=== PATIENT | female | born 1995 | race African-American/Black ===

== ENCOUNTER 2016-08-03 17:42 | Emergency (ER) | payer SELFPAY ==
[2016-08-03] MEDS ORDERED: Ibuprofen 800 MG TAB ONE (17:56)
== END 2016-08-03 18:21 | disposition home or self-care (01) ==
LOC: MADERS 17:42
DX: J02.9 Acute pharyngitis, unspecified (principal); F17.210 Nicotine dependence, cigarettes, uncomplicated
CPT/HCPCS: 87081; 87430; 99283

== ENCOUNTER 2016-12-16 11:47 | Emergency (ER) | payer MEDICAID, SELFPAY ==
[2016-12-16] MEDS ORDERED: HYDROcodone/Acetaminophen 10/325 mg Tablet ONE (12:03)
[2016-12-16] MEDS ORDERED: Naproxen 500 MG TAB ONE (12:04)
[2016-12-16] MEDS ORDERED: Azithromycin 250 MG TAB ONE (12:04)
== END 2016-12-16 12:15 | disposition home or self-care (01) ==
LOC: MADERS 11:47
DX: K04.7 Periapical abscess without sinus (principal); K03.81 Cracked tooth; K02.9 Dental caries, unspecified; F17.210 Nicotine dependence, cigarettes, uncomplicated
CPT/HCPCS: 99282

== ENCOUNTER 2016-12-24 21:38 | Emergency (ER) | payer MEDICAID, SELFPAY ==
[2016-12-24] MEDS ORDERED: Naproxen 500 MG TAB ONE (23:05)
[2016-12-24] MEDS ORDERED: AMOXicillin 250 MG CAP ONE (23:05)
[2016-12-24] MEDS ORDERED: HYDROcodone/Acetaminophen 10/325 mg Tablet ONE (23:05)
== END 2016-12-24 23:32 | disposition home or self-care (01) ==
LOC: MADERS 21:38
DX: K04.7 Periapical abscess without sinus (principal); F17.210 Nicotine dependence, cigarettes, uncomplicated
CPT/HCPCS: 99282

== ENCOUNTER 2018-02-09 14:58 | Emergency (ER) | payer MEDICAID, SELFPAY | END 2018-02-09 15:56 | disposition home or self-care (01) | LOC: MADERS 14:58 | DX: R51 Headache (principal); F17.210 Nicotine dependence, cigarettes, uncomplicated | CPT/HCPCS: 99281 ==

== ENCOUNTER 2019-10-09 08:57 | Emergency (ER) | payer SELFPAY ==
[2019-10-09] MEDS ORDERED: predniSONE 20 MG TAB ONE (09:45)
[2019-10-09] MEDS ORDERED: Acetaminophen 325 MG TAB ONE (09:45)
[2019-10-09] MEDS ORDERED: Clindamycin 150 MG CAP ONE (09:57)
== END 2019-10-09 10:48 | disposition home or self-care (01) ==
LOC: MADERS 08:57
DX: J02.0 Streptococcal pharyngitis (principal); F17.210 Nicotine dependence, cigarettes, uncomplicated
CPT/HCPCS: 87081; 87430; 99283; J7512

== ENCOUNTER 2020-08-08 07:27 | Emergency (ER) | payer SELFPAY ==
[2020-08-08 09:21] LABS: Bilirubin Negative (Negative); Blood, Urine Trace (Negative); Clarity Clear (Clear); Glucose, Urine (Dipstick) Negative (Negative); Ketone, Urine 80 mg/dL (Negative); Leukocyte Negative (Negative); Nitrite Negative (Negative); Protein, Urine (Dipstick) Negative (Neg-Trace); Urobilinogen 0.2 mg/dL (Less than 2); pH, Urine 6.5 (5.0-9.0)
[2020-08-08 09:22] LABS: Pregnancy Test - Urine (BHCG) Negative (Negative); Pregu Control Background? CLEAR/WHITE (CLR/WHITE); Pregu Control Bar Appear? YES (CONTROL BAR); Specific Gravity 1.023 (1.002-1.036)
[2020-08-08 09:23] LABS: Specific Gravity, Urine 1.023 (1.002-1.036)
[2020-08-08 09:31] LABS: Bacteria/HPF Rare-Few HPF (None Seen); Mucous/LPF Rare LPF (<2+); RBC/HPF 0-3 HPF (0-3); WBC/HPF 0-3 HPF (0-3)
[2020-08-10 20:38] LABS: Chlamydia by PCR Not Detected (NotDetected); GC by PCR Not Detected (NotDetected)
== END 2020-08-08 09:42 | disposition home or self-care (01) ==
LOC: MADERS 07:27
DX: N76.0 Acute vaginitis (principal); F17.210 Nicotine dependence, cigarettes, uncomplicated
CPT/HCPCS: 81003; 81015; 81025; 87480; 87491; 87510; 87591; 87660; 99283

== ENCOUNTER 2020-10-15 16:35 | Emergency (ER) | payer SELFPAY ==
[2020-10-15] MEDS ORDERED: Penicillin V Potassium 250 MG TAB ONE (17:28)
== END 2020-10-15 17:41 | disposition home or self-care (01) ==
LOC: MADERS 16:35
DX: K04.7 Periapical abscess without sinus (principal); F17.210 Nicotine dependence, cigarettes, uncomplicated; E66.9 Obesity, unspecified
CPT/HCPCS: 99283

== ENCOUNTER 2021-01-02 10:37 | Emergency (ER) | payer SELFPAY ==
[2021-01-02 11:11] LABS: Bilirubin Negative (Negative); Blood, Urine Small (Negative); Clarity Clear (Clear); Glucose, Urine (Dipstick) Negative (Negative); Ketone, Urine Negative (Negative); Leukocyte Negative (Negative); Nitrite Negative (Negative); Protein, Urine (Dipstick) Negative (Neg-Trace); Urobilinogen 0.2 mg/dL (Less than 2)
[2021-01-02 11:12] LABS: Pregnancy Test - Urine (BHCG) Negative (Negative); Pregu Control Background? CLEAR/WHITE (CLR/WHITE); Pregu Control Bar Appear? YES (CONTROL BAR); Specific Gravity 1.028 (1.002-1.036); Specific Gravity, Urine 1.028 (1.002-1.036)
[2021-01-02 11:17] LABS: Bacteria/HPF Rare-Few HPF (None Seen); Mucous/LPF 1+ LPF (<2+); RBC/HPF 0-3 HPF (0-3); WBC/HPF 0-3 HPF (0-3)
[2021-01-02] MEDS ORDERED: Clindamycin 150 MG CAP ONE (11:23)
== END 2021-01-02 11:35 | disposition home or self-care (01) ==
LOC: MADERS 10:37
DX: K04.7 Periapical abscess without sinus (principal); R03.0 Elevated blood-pressure reading, without diagnosis of hypertension; F17.210 Nicotine dependence, cigarettes, uncomplicated; E66.9 Obesity, unspecified
CPT/HCPCS: 81003; 81015; 81025; 99283

== ENCOUNTER 2021-01-17 09:48 | Emergency (ER) | payer SELFPAY ==
[2021-01-17 11:58] LABS: BHCG - Serum Negative (NEGATIVE); Pregs Control Background? CLEAR/WHITE (CLR/WHITE); Pregs Control Bar Appear? YES (CONTROL BAR)
== END 2021-01-17 12:36 | disposition home or self-care (01) ==
LOC: MADERS 09:48
DX: N91.2 Amenorrhea, unspecified (principal); F17.210 Nicotine dependence, cigarettes, uncomplicated; E66.9 Obesity, unspecified; Z68.45 Body mass index [BMI] 70 or greater, adult
CPT/HCPCS: 36415; 84703; 99283

== ENCOUNTER 2021-11-15 18:42 | Emergency (ER) | payer SELFPAY ==
[2021-11-15] MEDS ORDERED: Ondansetron ODT 4 MG TAB ONE (20:21)
[2021-11-15 20:48] LABS: Bilirubin Negative (Negative); Blood, Urine Trace (Negative); Clarity Slightly Cloudy (Clear); Glucose, Urine (Dipstick) Negative (Negative); Ketone, Urine Negative (Negative); Leukocyte Negative (Negative); Nitrite Positive (Negative); Pregnancy Test - Urine (BHCG) Negative (Negative); Pregu Control Background? CLEAR/WHITE (CLR/WHITE); Pregu Control Bar Appear? YES (CONTROL BAR); Protein, Urine (Dipstick) Trace mg/dL (Neg-Trace); Specific Gravity 1.023 (1.002-1.036); Urobilinogen 0.2 mg/dL (Less than 2); pH, Urine 5.5 (5.0-9.0)
[2021-11-15 20:49] LABS: Specific Gravity, Urine 1.023 (1.002-1.036)
[2021-11-15 20:57] LABS: RBC/HPF 0-3 HPF (0-3); Squamous Epithelial Greater than 50 HPF (0-3)
[2021-11-15 20:58] LABS: Bacteria/HPF 3+ HPF (None Seen)
== END 2021-11-15 21:55 | disposition home or self-care (01) ==
LOC: MADERS 18:42
DX: B34.9 Viral infection, unspecified (principal); Z20.822 Contact with and (suspected) exposure to COVID-19; E66.9 Obesity, unspecified; F17.210 Nicotine dependence, cigarettes, uncomplicated
CPT/HCPCS: 81003; 81015; 81025; 87804; 99283; Q0162; U0003; U0005

== ENCOUNTER 2021-12-23 11:01 | Emergency (ER) | payer OTHER, SELFPAY ==
[2021-12-23 12:55] LABS: Pregnancy Test - Urine (BHCG) Negative (Negative); Pregu Control Background? CLEAR/WHITE (CLR/WHITE); Pregu Control Bar Appear? YES (CONTROL BAR)
[2021-12-23] MEDS ORDERED: Orphenadrine Citrate 60 MG/2 ML VIAL ONE (13:13)
== END 2021-12-23 14:15 | disposition home or self-care (01) ==
LOC: MADERS 11:01
DX: T14.8XXA Other injury of unspecified body region, initial encounter (principal); M54.6 Pain in thoracic spine; M25.551 Pain in right hip; M25.562 Pain in left knee; I10 Essential (primary) hypertension; E66.9 Obesity, unspecified; F17.210 Nicotine dependence, cigarettes, uncomplicated; V89.2XXA Person injured in unspecified motor-vehicle accident, traffic, initial encounter
CPT/HCPCS: 72040; 72072; 72100; 81025; 96372; J2360

== ENCOUNTER 2022-01-06 13:42 | Emergency (ER) | payer SELFPAY ==
[2022-01-06 14:22] LABS: Bilirubin Negative (Negative); Blood, Urine Trace (Negative); Clarity Clear (Clear); Glucose, Urine (Dipstick) Negative (Negative); Ketone, Urine 15 mg/dL (Negative); Leukocyte Negative (Negative); Nitrite Negative (Negative); Protein, Urine (Dipstick) Negative (Neg-Trace); Urobilinogen 0.2 mg/dL (Less than 2)
[2022-01-06 14:24] LABS: Pregnancy Test - Urine (BHCG) Negative (Negative); Pregu Control Background? CLEAR/WHITE (CLR/WHITE); Pregu Control Bar Appear? YES (CONTROL BAR)
[2022-01-06 14:30] LABS: Bacteria/HPF 2+ HPF (None Seen); Mucous/LPF 1+ LPF (<2+); RBC/HPF 0-3 HPF (0-3); Squamous Epithelial 21-50 HPF (0-3)
[2022-01-06] MEDS ORDERED: Naproxen 500 MG TAB ONE (15:28)
== END 2022-01-06 15:33 | disposition home or self-care (01) ==
LOC: MADERS 13:42
DX: S39.012A Strain of muscle, fascia and tendon of lower back, initial encounter (principal); S29.011A Strain of muscle and tendon of front wall of thorax, initial encounter; I10 Essential (primary) hypertension; E66.9 Obesity, unspecified; F17.210 Nicotine dependence, cigarettes, uncomplicated; Z79.899 Other long term (current) drug therapy; X58.XXXA Exposure to other specified factors, initial encounter
CPT/HCPCS: 72128; 72131; 81003; 81015; 81025

== ENCOUNTER 2024-11-06 17:43 | Emergency (ER) | payer SELFPAY ==
[2024-11-06] MEDS ORDERED: Ibuprofen 600 MG TAB ONE (18:29)
[2024-11-06] MEDS ORDERED: Acetaminophen 500 MG TAB ONE (19:33)
== END 2024-11-06 19:37 | disposition home or self-care (01) ==
LOC: MADERS 17:43
DX: M72.2 Plantar fascial fibromatosis (principal); I10 Essential (primary) hypertension; E66.9 Obesity, unspecified; F17.210 Nicotine dependence, cigarettes, uncomplicated
CPT/HCPCS: 99283